=== PATIENT | male | born 1965 | race Caucasian/White ===

== ENCOUNTER → 2018-03-29 | Outpatient (CLI) | payer OTHER ==
--- NOTE | 2018-03-29 09:48 | XR ---
EXAMINATION TYPE: XR lumbosacral spine min 4V DATE OF EXAM: 03/29/2018 CLINICAL HISTORY: Chronic low back pain TECHNIQUE: Frontal, lateral, and oblique images of the lumbar spine are obtained. COMPARISON: None FINDINGS: There are 5 lumbar type vertebral bodies identified. The lumbar spine shows satisfactory alignment without evidence of acute fracture or dislocation. Vertebral body heights and disk space he ights are within normal limits. Mild multilevel anterior and lateral spurring is seen. The oblique i mages appear within normal limits. The overlying soft tissue appears unremarkable. IMPRESSION: Mild multilevel spurring is present.
== END ==
LOC: RADXRMAIN 09:05
PROVIDERS: ATTEND Family Medicine
DX: M46.06 Spinal enthesopathy, lumbar region (principal)
CPT/HCPCS: 72110

== ENCOUNTER 2019-09-08 17:55 | Observation (INO) | payer OTHER ==
[2019-09-08] MEDS ORDERED: SODIUM CHLORIDE 0.9% 1,000 ML IV STA (18:59)
[2019-09-08] MEDS ORDERED: ASPIRIN 81 MG PO STA (18:59)
[2019-09-08] MEDS ORDERED: NITROGLYCERIN SL TABS 0.4 MG TAB SUBLINGUAL STA ×3 (18:59)
--- NOTE | 2019-09-08 19:03 | ED ---
General Adult HPI - General Chief complaint: Chest Pain Stated complaint: GISSEL,Chest pain Time Seen by Provider: 09/08/19 18:04 Source: patient, RN notes reviewed Mode of arrival: ambulatory Limitations: no limitations - History of Present Illness Initial comments: Patient is a pleasant 54-year-old male presenting to the emergency department with chest discomfort. Symptoms have been waxing and waning over the past 2 days. Patient has sharp chest discomfort. There is some associated dyspnea and nausea and sweating. Patient does have history of similar symptoms previously associated with cardiac disease. Discomfort is currently 7/10. No radiation. Patient has diffuse chronic bone pain. - Related Data Home Medications Medication Instructions Recorded Confirmed No Known Home Medications 09/08/19 09/08/19 Allergies Allergy/AdvReac Type Severity Reaction Status Date / Time No Known Allergies Allergy Verified 09/08/19 18:38 Review of Systems ROS Statement: Those systems with pertinent positive or pertinent negative responses have been documented in the HPI. ROS Other: All systems not noted in ROS Statement are negative. Constitutional: Denies: fever Eyes: Denies: eye pain ENT: Denies: ear pain Respiratory: Reports: dyspnea Cardiovascular: Reports: chest pain Endocrine: Denies: fatigue Gastrointestinal: Reports: nausea. Denies: abdominal pain Genitourinary: Denies: dysuria Musculoskeletal: Reports: as per HPI Skin: Denies: rash Neurological: Denies: weakness Past Medical History Past Medical History: COPD History of Any Multi-Drug Resistant Organisms: None Reported Past Surgical History: No Surgical Hx Reported Past Psychological History: No Psychological Hx Reported Smoking Status: Current every day smoker Past Alcohol Use History: None Reported Past Drug Use History: Marijuana General Exam Limitations: no limitations General appearance: alert, in no apparent distress Head exam: Present: normocephalic Eye exam: Present: normal appearance, PERRL ENT exam: Present: normal oropharynx Neck exam: Present: normal inspection Respiratory exam: Present: normal lung sounds bilaterally. Absent: chest wall tenderness Cardiovascular Exam: Present: regular rate, normal rhythm Expanded Peripheral pulses: 2+: Radial (R), Radial (L), Posterior Tibialis (R), Posterior Tibialis (L), Dorsalis Pedis (R), Dorsalis Pedis (L) GI/Abdominal exam: Present: soft. Absent: tenderness Extremities exam: Present: normal inspection. Absent: pedal edema, calf tenderness Neurological exam: Present: alert Psychiatric exam: Present: normal affect, normal mood Skin exam: Present: normal color Course Vital Signs 09/08/19 09/08/19 09/08/19 17:59 19:13 19:17 Temperature 97.9 F Pulse Rate 85 64 59 L Respiratory 20 18 18 Rate Blood Pressure 129/85 117/73 118/76 O2 Sat by Pulse 99 95 96 Oximetry EKG Findings - EKG Comments: EKG Findings:: Normal sinus rhythm 67. SD 132. QRS 88. QT 374. QTC 395. Left axis. Septal Q waves. No acute ST change. Medical Decision Making - Medical Decision Making Patient reevaluated and resting comfortably in bed. Symptoms have improved with nitroglycerin. Patient updated on results and plan. Case was discussed with practitioner Elsy, covering with Dr. George, who will admit for hospital call. - Lab Data Result diagrams: 09/08/19 18:39 09/08/19 18:39 Lab Results 09/08/19 09/08/19 09/08/19 Range/Units 18:39 18:39 18:39 WBC 7.0 (3.8-10.6) k/uL RBC 4.80 (4.30-5.90) m/uL Hgb 15.9 (13.0-17.5) gm/dL Hct 47.1 (39.0-53.0) % MCV 98.2 (80.0-100.0) fL MCH 33.3 (25.0-35.0) pg MCHC 33.9 (31.0-37.0) g/dL RDW 12.0 (11.5-15.5) % Plt Count 203 (150-450) k/uL Neutrophils % 59 % Lymphocytes % 28 % Monocytes % 6 % Eosinophils % 3 % Basophils % 1 % Neutrophils # 4.1 (1.3-7.7) k/uL Lymphocytes # 2.0 (1.0-4.8) k/uL Monocytes # 0.4 (0-1.0) k/uL Eosinophils # 0.2 (0-0.7) k/uL Basophils # 0.1 (0-0.2) k/uL PT 10.5 (9.0-12.0) sec INR 1.0 (<1.2) APTT 24.6 (22.0-30.0) sec D-Dimer 0.19 (<0.60) mg/L FEU Sodium 138 (137-145) mmol/L Potassium 4.3 (3.5-5.1) mmol/L Chloride 107 (98-107) mmol/L Carbon Dioxide 24 (22-30) mmol/L Anion Gap 7 mmol/L BUN 17 (9-20) mg/dL Creatinine 0.89 (0.66-1.25) mg/dL Est GFR (CKD-EPI)AfAm >90 (>60 ml/min/1.73 sqM) Est GFR (CKD-EPI)NonAf >90 (>60 ml/min/1.73 sqM) Glucose 133 H (74-99) mg/dL Calcium 9.0 (8.4-10.2) mg/dL Magnesium 1.8 (1.6-2.3) mg/dL Total Bilirubin 0.6 (0.2-1.3) mg/dL AST 36 (17-59) U/L ALT 26 (21-72) U/L Alkaline Phosphatase 52 (38-126) U/L Troponin I (0.000-0.034) ng/mL NT-Pro-B Natriuret Pep pg/mL Total Protein 6.6 (6.3-8.2) g/dL Albumin 4.0 (3.5-5.0) g/dL Amylase 53 (30-110) U/L Lipase 34 (23-300) U/L 09/08/19 09/08/19 Range/Units 18:39 18:39 WBC (3.8-10.6) k/uL RBC (4.30-5.90) m/uL Hgb (13.0-17.5) gm/dL Hct (39.0-53.0) % MCV (80.0-100.0) fL MCH (25.0-35.0) pg MCHC (31.0-37.0) g/dL RDW (11.5-15.5) % Plt Count (150-450) k/uL Neutrophils % % Lymphocytes % % Monocytes % % Eosinophils % % Basophils % % Neutrophils # (1.3-7.7) k/uL Lymphocytes # (1.0-4.8) k/uL Monocytes # (0-1.0) k/uL Eosinophils # (0-0.7) k/uL Basophils # (0-0.2) k/uL PT (9.0-12.0) sec INR (<1.2) APTT (22.0-30.0) sec D-Dimer (<0.60) mg/L FEU Sodium (137-145) mmol/L Potassium (3.5-5.1) mmol/L Chloride (98-107) mmol/L Carbon Dioxide (22-30) mmol/L Anion Gap mmol/L BUN (9-20) mg/dL Creatinine (0.66-1.25) mg/dL Est GFR (CKD-EPI)AfAm (>60 ml/min/1.73 sqM) Est GFR (CKD-EPI)NonAf (>60 ml/min/1.73 sqM) Glucose (74-99) mg/dL Calcium (8.4-10.2) mg/dL Magnesium (1.6-2.3) mg/dL Total Bilirubin (0.2-1.3) mg/dL AST (17-59) U/L ALT (21-72) U/L Alkaline Phosphatase (38-126) U/L Troponin I <0.012 (0.000-0.034) ng/mL NT-Pro-B Natriuret Pep 56 pg/mL Total Protein (6.3-8.2) g/dL Albumin (3.5-5.0) g/dL Amylase (30-110) U/L Lipase (23-300) U/L - Radiology Data Radiology results: image reviewed (Chest x-ray shows no acute process) Critical Care Time Critical Care Time: Yes Total Critical Care Time: 32 Disposition Clinical Impression: Unstable angina pectoris Disposition: ADMITTED IP TO THIS HOSP Is patient prescribed a controlled substance at d/c from ED?: No Referrals: None,Stated [Primary Care Provider] - 1-2 days Decision Time: 20:28
[2019-09-08 19:17] LABS: Basophils # (A) 0.1 k/uL (0-0.2); Basophils % (A) 1 %; Eosinophils # (A) 0.2 k/uL (0-0.7); Eosinophils % (A) 3 %; HCT 47.1 % (39.0-53.0); HGB 15.9 gm/dL (13.0-17.5); Lymphocytes % (A) 28 %; MCH 33.3 pg (25.0-35.0); MCHC 33.9 g/dL (31.0-37.0); MCV 98.2 fL (80.0-100.0); Mean Platelet Volume 7.2; Monocytes # (A) 0.4 k/uL (0-1.0); Monocytes % (A) 6 %; Neutrophils # (A) 4.1 k/uL (1.3-7.7); Neutrophils % (A) 59 %; Platelet Count 203 k/uL (150-450)
[2019-09-08 19:25] LABS: ALT 26 U/L (21-72); AST 36 U/L (17-59); African American GFR (CKD) >90 (>60 ml/min/1.73 sqM); Alkaline Phosphatase 52 U/L (38-126); Amylase 53 U/L (30-110); Anion Gap 7 mmol/L; Blood Urea Nitrogen 17 mg/dL (9-20); Carbon Dioxide 24 mmol/L (22-30); Chloride 107 mmol/L (98-107); Glucose 133 mg/dL (74-99); Magnesium 1.8 mg/dL (1.6-2.3); Sodium 138 mmol/L (137-145); Total Bilirubin 0.6 mg/dL (0.2-1.3); Total Protein 6.6 g/dL (6.3-8.2)
[2019-09-08 19:33] LABS: Potassium 4.3 mmol/L (3.5-5.1)
[2019-09-08 19:35] LABS: D-Dimer 0.19 mg/L FEU (<0.60); Partial Thromboplastin Time 24.6 sec (22.0-30.0); Prothrombin Time 10.5 sec (9.0-12.0)
--- NOTE | 2019-09-08 19:55 | XR ---
EXAMINATION TYPE: XR chest 2V DATE OF EXAM: 09/08/2019 COMPARISON: NONE HISTORY: Chest pain TECHNIQUE: Frontal and lateral views of the chest are obtained. FINDINGS: Heart and mediastinum are normal. Lungs are clear. Diaphragm is normal. Bony thorax appear s normal. IMPRESSION: No active cardiopulmonary disease..
[2019-09-08] MEDS ORDERED: HEPARIN SODIUM,PORCINE 5,000 UNIT/ML 1 ML VIAL IV PRN (20:29)
[2019-09-08] MEDS ORDERED: HEPARIN SODIUM,PORCINE 5,000 UNIT/ML 1 ML VIAL IV ONE (20:29)
[2019-09-08] MEDS ORDERED: HEPARIN SOD,PORK IN 0.45% NACL 25,000 UNIT in 0.45% NACL 1 250ML.BAG IV SCH (20:30)
[2019-09-08] MEDS: NITROGLYCERIN-D5W PMX 50 MG in DEXTROSE/WATER 1 250ML.BAG IV ONE (20:34)
[2019-09-08 22:28] VITALS: BMI 21.1
[2019-09-09 02:53] LABS: Mean Platelet Volume 6.9; Platelet Count 191 k/uL (150-450)
[2019-09-09 03:05] LABS: Cholesterol 138 mg/dL (<200); HDL Cholesterol 43 mg/dL (40-60); LDL Cholesterol,Calculated 80 mg/dL (0-99); Triglycerides 77 mg/dL (<150)
[2019-09-09] MEDS: NITROGLYCERIN-D5W PMX 50 MG in DEXTROSE/WATER 1 250ML.BAG IV ONE (05:53)
[2019-09-09] MEDS: ASPIRIN 325 MG TAB PO SCH (09:05)
[2019-09-09] MEDS: ACETAMINOPHEN TAB 500 MG TAB PO PRN ×2 (09:05→17:39)
--- NOTE | 2019-09-09 09:26 | P.CRDCN ---
History of Present Illness Consult date: 09/09/19 Chief complaint: Chest pain History of present illness: This is a pleasant 54-year-old gentleman with a past medical history significant for smoking and significant family history of coronary artery disease presented to the hospital complaining of chest discomfort. The patient presented to the emergency room yesterday experiencing discomfort in the chest. The discomfort started about 3 days ago. The patient stated that it was on the left side of the chest, as a sharp kind of discomfort, and it was intermittent. For the last 12 hours the pain was continuous and it was resolved with nitroglycerin. The discomfort extends and radiated to the left arm and associated also with numbness in the left hand. No symptoms of sweating, dizziness, nausea or vomiting. Currently the patient is on nitro drip which is relieving his pain free in spite of the nitro drip the patient is having mild ongoing chest discomfort. The EKG showed sinus rhythm without any significant ST or T-wave abnormalities. The cardiac enzymes were checked and came in to be unremarkable. Also he is on heparin drip. Giving the ongoing chest discomfort, and his multiple risk factors including smoking and family history, I did recommend proceeding with coronary angiogram. Also I will obtain an echocardiogram was Doppler. Past Medical History Past Medical History: COPD History of Any Multi-Drug Resistant Organisms: None Reported Past Surgical History: No Surgical Hx Reported Past Psychological History: No Psychological Hx Reported Smoking Status: Current every day smoker Past Alcohol Use History: None Reported Past Drug Use History: Marijuana - Past Family History Father Family Medical History: Diabetes Mellitus, Hypertension, Myocardial Infarction ([place]) Additional Family Medical History / Comment(s): in 1979 during operation to amputate leg because of gangrene. Mother Family Medical History: Liver Disease Additional Family Medical History / Comment(s): Alcoholism. in 1979 from cirrhosis of the liver. Medications and Allergies Home Medications Medication Instructions Recorded Confirmed Type No Known Home Medications 09/08/19 09/08/19 History Allergies Allergy/AdvReac Type Severity Reaction Status Date / Time bee venom protein (honey bee) Allergy Anaphylaxis Verified 09/08/19 22:46 Penicillins Allergy Rash/Hives Verified 09/08/19 22:45 Physical Exam Vitals: Vital Signs Temp Pulse Pulse Resp BP BP Pulse Ox 09/09/19 08:40 93 L 09/09/19 06:20 55 L 119/72 09/09/19 05:50 72 116/69 09/09/19 04:00 97.1 F L 69 16 125/71 96 09/09/19 00:00 97.2 F L 63 18 116/69 98 09/08/19 22:00 97.2 F L 57 L 16 108/60 98 09/08/19 19:17 59 L 18 118/76 96 09/08/19 19:13 64 18 117/73 95 09/08/19 17:59 97.9 F 85 20 129/85 99 Intake and Output 09/08/19 09/09/19 09/09/19 22:59 06:59 14:59 Other: Voiding Method Toilet # Voids 1 2 Weight 61.235 kg 55.9 kg - Constitutional General appearance: no acute distress - Respiratory Respiratory: bilateral: CTA - Cardiovascular Rhythm: regular Heart sounds: normal: S1, S2 Results 09/09/19 02:27 09/08/19 18:39 Cardiac Enzymes 09/08/19 09/08/19 09/09/19 Range/Units 18:39 18:39 00:22 AST 36 (17-59) U/L Troponin I <0.012 <0.012 (0.000-0.034) ng/mL 09/09/19 Range/Units 06:21 AST (17-59) U/L Troponin I <0.012 (0.000-0.034) ng/mL Coagulation 09/08/19 09/09/19 Range/Units 18:39 02:27 PT 10.5 (9.0-12.0) sec APTT 24.6 55.0 H (22.0-30.0) sec Lipids 09/09/19 Range/Units 02:27 Triglycerides 77 (<150) mg/dL Cholesterol 138 (<200) mg/dL HDL Cholesterol 43 (40-60) mg/dL CBC 09/08/19 09/09/19 Range/Units 18:39 02:27 WBC 7.0 (3.8-10.6) k/uL RBC 4.80 (4.30-5.90) m/uL Hgb 15.9 (13.0-17.5) gm/dL Hct 47.1 (39.0-53.0) % Plt Count 203 191 (150-450) k/uL Comprehensive Metabolic Panel 09/08/19 Range/Units 18:39 Sodium 138 (137-145) mmol/L Potassium 4.3 (3.5-5.1) mmol/L Chloride 107 (98-107) mmol/L Carbon Dioxide 24 (22-30) mmol/L BUN 17 (9-20) mg/dL Creatinine 0.89 (0.66-1.25) mg/dL Glucose 133 H (74-99) mg/dL Calcium 9.0 (8.4-10.2) mg/dL AST 36 (17-59) U/L ALT 26 (21-72) U/L Alkaline Phosphatase 52 (38-126) U/L Total Protein 6.6 (6.3-8.2) g/dL Albumin 4.0 (3.5-5.0) g/dL Current Medications Generic Name Dose Route Start Last Admin Trade Name Freq PRN Reason Stop Dose Admin Acetaminophen 1,000 mg 09/09/19 08:37 09/09/19 09:05 Tylenol Tab PO 1,000 mg Q6HR PRN Administration Fever and/ or Pain Aspirin 325 mg 09/09/19 09:00 09/09/19 09:05 Aspirin PO 325 mg DAILY LYNN Administration Heparin Sodium (Porcine) 0 unit 09/08/19 20:29 Heparin IV Q6HR PRN Low PTT Protocol Nitroglycerin/Dextrose 50 mg/ 250 mls @ 3 mls/hr 09/08/19 19:59 09/09/19 05:53 IV Solution IV 09/09/19 19:58 10 mcg/min .Q24H ONE 3 mls/hr Administration 10 MCG/MIN Heparin Sodium/Sodium Chloride 250 mls @ 7.348 mls/hr 09/08/19 20:30 09/08/19 20:42 25,000 unit/ Sodium Chloride IV 12 units/kg/hr .Q24H LYNN 7.348 mls/hr Administration Protocol 12 UNITS/KG/HR Intake and Output 09/08/19 09/09/19 09/09/19 22:59 06:59 14:59 Other: Voiding Method Toilet # Voids 1 2 Weight 61.235 kg 55.9 kg 09/09/19 02:27 09/08/19 18:39 Assessment and Plan Assessment: Assessment #1 ongoing chest discomfort #2 significant history of smoking #3 significant family history of CAD Plan Acute coronary event was ruled out I did recommend proceeding with coronary angiogram Obtain an echocardiogram was Doppler Thank you for allowing us participate in his care
[2019-09-09] MEDS ORDERED: LIDOCAINE 1% INJ 10MG/ML (20 ML MDV) ONE (11:10)
[2019-09-09] MEDS ORDERED: VERAPAMIL 2.5 MG/ML 2 ML AMP ONE (11:11)
[2019-09-09] MEDS ORDERED: HEPARIN SODIUM 1,000 UN/ML (10ML VL) ONE (11:11)
[2019-09-09] MEDS ORDERED: IV FLUID CONTINUATION 700 ML IV ONE (11:29)
[2019-09-09] MEDS ORDERED: MIDAZOLAM 2 MG/2 ML VIAL IV ONE (11:29)
[2019-09-09] MEDS ORDERED: LIDOCAINE 1% INJ 10MG/ML (20 ML MDV) SQ ONE (11:34)
[2019-09-09] MEDS: VERAPAMIL SYRINGE (5 MG/10 ML) INTRAARTER ONE ×2 (11:35→11:44)
[2019-09-09] MEDS ORDERED: IOPAMIDOL-370 125ML BTL INJ ONE (11:47)
--- NOTE | 2019-09-09 11:50 | P.PCN ---
Date of Procedure: 09/09/19 Operative Findings: CARDIAC CATHETERIZATION PERFORMING PHYSICIAN: Jeramy Arredondo MD, RPVI PROCEDURE PERFORMED: 1. Selective right and left coronary angiogram 2. Left heart catheterization INDICATION: This is a pleasant 54-year-old gentleman with history of smoking and significant family history of coronary artery disease presented to the hospital with a chest discomfort. He continues to have ongoing chest discomfort which was relieved partially using IV nitroglycerin. Because of the continuous chest discomfort, I heart catheterization was advised COMPLICATION: None APPROACH: Right radial artery LEVEL OF SEDATION: Moderate with a sedation and of 12 minutes PROCEDURE DESCRIPTION: After obtaining an informed consent, the patient was brought to cardiac laboratory tech. Local anesthesia was performed using lidocaine subcutaneously. The right radial artery was cannulated using Seldinger technique, the guidewire passed easily, following that we advanced a 5-Haitian sheath dilator assembly, the wire and dilator were removed and sheath was flushed. Following that, 2 mg of verapamil along with 6000 unit heparin were given. Selective right and left coronary angiogram using a 6-Haitian JR3.5 and JL 3.0 catheters. Following that we did left heart catheterization using 6-Haitian pigtail cath eter. The procedure was completed there was no complication. SELECTIVE CORONARY ANGIOGRAM: The right coronary artery: Is a large caliber vessel and a dominant vessel. Its angiographically normal. Left main: It is angiographically normal. Bifurcates into LCx and LAD. The left circumflex: Is a large caliber vessel and a codominant vessel. Its angiographically normal. It gives rises into a large OM which seems to be normal. Distally bifurcates into PDA and PLV branches The left anterior descending artery: The LAD is angiographically normal. In the proximal portion gives rise into a l arge diagonal branch which seems to be normal. HEMODYNAMICS: The LVEDP was about 10 mmHg without significant gradient across aortic valve CONCLUSION: Normal coronary angiogram Normal LVEDP POSTPROCEDURE MANAGEMENT: Medical treatment Smoking cessation
--- NOTE | 2019-09-09 14:33 | ECHOF ---
Referral Reason: MEASUREMENTS -------- HEIGHT: 170.2 cm WEIGHT: 55.7 kg BP: 119/72 RVIDd: 3.1 cm (< 3.3) IVSd: 0.9 cm (0.6 - 1.1) LVIDd: 3.9 cm (3.9 - 5.3) LVPWd: 1.0 cm (0.6 - 1.1) IVSs: 1.5 cm LVIDs: 2.4 cm LVPWs: 1.5 cm LAESV Index (A-L): 13.90 ml/m Ao Diam: 2.9 cm (2.0 - 3.7) AV Cusp: 1.7 cm (1.5 - 2.6) LA Diam: 3.2 cm (2.7 - 3.8) MV EXCURSION: 13.666 mm (> 18.000) MV EF SLOPE: 108 mm/s (70 - 150) EPSS: 1.0 cm MV E Roberth: 0.98 m/s MV DecT: 202 ms MV A Roberth: 0.62 m/s MV E/A Ratio: 1.59 RAP: 5.00 mmHg RVSP: 25.57 mmHg TAPSE: 19.52 mm FINDINGS -------- Sinus rhythm. This was a technically adequate study. The left ventricular size is normal. Left ventricular wall thickness is normal. Overall left vent ricular systolic function is normal with, an EF between 55 - 60 %. The diastolic filling pattern is normal for the age of the patient 11.78. The right ventricle is normal in size. Normal LA size by volume 22+/-6 ml/m2. The right atrial size is normal. Interatrial and interventricular septum intact. The aortic valve was not well visualized. There is no evidence of aortic regurgitation. There is no evidence of aortic stenosis. No mitral regurgitation. [id number] tricuspid regurgitation present. There is no evidence of pulmonary hypertension. The right ventricular systolic pressure, as measured by Doppler, is 25.57mmHg. The pulmonic valve was not well visualized. There is no pulmonic regurgitation present. The aortic root size is normal. IVC Not well visulized. There is no pericardial effusion. CONCLUSIONS -------- 1. Sinus rhythm. 2. This was a technically adequate study. 3. The left ventricular size is normal. 4. Left ventricular wall thickness is normal. 5. Overall left ventricular systolic function is normal with, an EF between 55 - 60 %. 6. The diastolic filling pattern is normal for the age of the patient 11.78 7. The right ventricle is normal in size. 8. Normal LA size by volume 22+/-6 ml/m2. 9. The right atrial size is normal. 10. Interatrial and interventricular septum intact. 11. The aortic valve was not well visualized. 12. There is no evidence of aortic regurgitation. 13. There is no evidence of aortic stenosis. 14. No mitral regurgitation. 15. [id number] tricuspid regurgitation present. 16. There is no evidence of pulmonary hypertension. 17. The right ventricular systolic pressure, as measured by Doppler, is 25.57mmHg. 18. The pulmonic valve was not well visualized. 19. There is no pulmonic regurgitation present. 20. The aortic root size is normal. 21. IVC Not well visulized. 22. There is no pericardial effusion. GRINDER OPERATOR [employer]ATIC: Carrie Escamilla RDCS
[2019-09-09] MEDS: PANTOPRAZOLE 40 MG TABLET PO SCH (17:39)
--- NOTE | 2019-09-10 00:10 | P.HPIM ---
History of Present Illness H&P Date: 09/09/19 Chief Complaint: Chest pain Patient is a 54-year-old male with a known history of COPD, marijuana use and currently ongoing nicotine addiction came to ER with the complaints of chest discomfort. Patient has been having chest pain, felt like somebody is sitting on the chest. 7- out of 10 in severity. Chest pain is mainly left lower pectoralis border on and off for the past 2 days. Chest pain associated with some shortness of breath nausea and sweating. Denied any radiation of the pain. Patient says that chest pain resolved with nitroglycerin. Patient also felt so me numbness in the left hand. No headache or dizziness or lightheadedness. No fever no chills. No cough or sputum production. No recent illnesses. No nausea or nausea vomiting or abdominal pain or diarrhea. Patient does take Motrin/ibuprofen almost daily basis for his pain. EKG showed sinus rhythm with no ST-T wave changes. Chest x-ray showed no acute cardiopulmonary process. D-dimer not elevated. Troponin 2 negative. Review of Systems Constitutional: Patient denies any fever or chills . No generalized weakness or weight loss. Abdomen: Patient denied nausea vomiting and diarrhea and abdominal pain. Cardiovascular: Patient does have chest pain with mild short of breath no palpitations. Respiratory: patient denied any cough is from production. No shortness of breath Neurologic: Patient denied any numbness or tingling headache. Musculoskeletal: Patient denies any complaints of joint swelling or deformity. Skin: Negative Psychiatric: Negative Endocrine: No heat or cold intolerance. No recent weight gain. Genitourinary: No dysuria or hematuria. All other 14 point ROS negative except the above Past Medical History Past Medical History: COPD History of Any Multi-Drug Resistant Organisms: None Reported Past Surgical History: No Surgical Hx Reported Past Psychological History: No Psychological Hx Reported Smoking Status: Current every day smoker Past Alcohol Use History: None Reported Past Drug Use History: Marijuana - Past Family History Father Family Medical History: Diabetes Mellitus, Hypertension, Myocardial Infarction ([place]) Additional Family Medical History / Comment(s): in 1979 during operation to amputate leg because of gangrene. Mother Family Medical History: Liver Disease Additional Family Medical History / Comment(s): Alcoholism. in 1979 from cirrhosis of the liver. Medications and Allergies Home Medications Medication Instructions Recorded Confirmed Type No Known Home Medications 09/08/19 09/08/19 History Allergies Allergy/AdvReac Type Severity Reaction Status Date / Time bee venom protein (honey bee) Allergy Anaphylaxis Verified 09/08/19 22:46 Penicillins Allergy Rash/Hives Verified 09/08/19 22:45 Physical Exam Vitals: Vital Signs Temp Pulse Pulse Resp BP BP Pulse Ox 09/09/19 08:40 93 L 09/09/19 08:10 97.0 F L 65 18 110/64 95 09/09/19 06:20 55 L 119/72 09/09/19 05:50 72 116/69 09/09/19 04:00 97.1 F L 69 16 125/71 96 09/09/19 00:00 97.2 F L 63 18 116/69 98 09/08/19 22:00 97.2 F L 57 L 16 108/60 98 09/08/19 19:17 59 L 18 118/76 96 09/08/19 19:13 64 18 117/73 95 09/08/19 17:59 97.9 F 85 20 129/85 99 Intake and Output 09/08/19 09/09/19 09/09/19 22:59 06:59 14:59 Intake Total 100 Balance 100 Intake: IV 100 Other: Voiding Method Toilet # Voids 1 2 2 Weight 61.235 kg 55.9 kg PHYSICAL EXAMINATION: Patient is lying in the bed comfortably, no acute distress, awake alert and oriented.. HEENT: Normocephalic. Neck is supple. Pupils reactive. Nostrils clear. Oral cavity is moist. Ears reveal no drainage. Neck reveals no JVD, carotid bruits, or thyromegaly. CHEST EXAMINATION: Trachea is central. Symmetrical expansion. Lung diggs clear to auscultation and percussion. CARDIAC: Normal S1, S2 with no gallops. No murmurs ABDOMEN: Soft. Bowel sounds normal. No organomegaly. No abdominal bruits. Extremities: reveal no edema. No clubbing or cyanosis Neurologically awake, alert, oriented x3 with well-coordinated movements. No focal deficits noted Skin: No rash or skin lesions. Psychiatric: Coperative. Nonsuicidal Musculoskeletal: No joint swelling or deformity. Normal range of motion. Results CBC & Chem 7: 09/09/19 02:27 09/08/19 18:39 Labs: Abnormal Lab Results - Last 24 Hours (Table) 09/08/19 09/09/19 Range/Units 18:39 02:27 APTT 55.0 H (22.0-30.0) sec Glucose 133 H (74-99) mg/dL Thrombosis Risk Factor Assmnt - DVT/VTE Prophylaxis DVT/VTE Prophylaxis: Pharmacologic Prophylaxis ordered - Choose All That Apply Each Factor Represents 1 point: Age 41-60 years, Medical pt on bed rest Thrombosis Risk Factor Assessment Total Risk Factor Score: 2 Thrombosis Risk Factor Assessment Level: Low Risk Assessment and Plan Assessment: Chest pain. Possible unstable angina. Status post cardiac catheterization with no significant coronary artery disease. Possible acute gastritis versus gastric ulcer due to history of NSAID intake. Ongoing nicotine addiction Chronic pain History of marijuana use DVT prophylaxis with heparin subcu Plan: Patient be continued on telemetry monitoring. Serial EKG/troponin 3 negative. Patient is status post cardiac catheter patient. Continue with PPI twice a day. Cardiology is on board. Further recommendations based on the clinical course. Time with Patient: Greater than 30
[2019-09-10 04:01] VITALS: PULSE 61
[2019-09-10 06:18] LABS: Basophils # (A) 0.1 k/uL (0-0.2); Basophils % (A) 1 %; Eosinophils # (A) 0.3 k/uL (0-0.7); Eosinophils % (A) 4 %; HCT 47.3 % (39.0-53.0); Lymphocytes % (A) 31 %; MCH 31.8 pg (25.0-35.0); MCHC 31.7 g/dL (31.0-37.0); MCV 100.5 fL (80.0-100.0); Mean Platelet Volume 8.1; Monocytes # (A) 0.4 k/uL (0-1.0); Monocytes % (A) 7 %; Neutrophils # (A) 3.5 k/uL (1.3-7.7); Neutrophils % (A) 54 %; Platelet Count 161 k/uL (150-450); RBC 4.71 m/uL (4.30-5.90); RDW 12.3 % (11.5-15.5); WBC 6.5 k/uL (3.8-10.6)
[2019-09-10 06:28] LABS: African American GFR (CKD) >90 (>60 ml/min/1.73 sqM); Anion Gap 6 mmol/L; Blood Urea Nitrogen 11 mg/dL (9-20); Calcium 8.5 mg/dL (8.4-10.2); Carbon Dioxide 24 mmol/L (22-30); Chloride 110 mmol/L (98-107); Glucose 97 mg/dL (74-99); Potassium 3.9 mmol/L (3.5-5.1); Sodium 140 mmol/L (137-145)
[2019-09-10] MEDS: PANTOPRAZOLE 40 MG TABLET PO SCH (06:56)
[2019-09-10] MEDS ORDERED: HEPARIN SODIUM,PORCINE 5,000 UNIT/ML 1 ML VIAL SQ SCH (08:00)
[2019-09-10] MEDS: ASPIRIN 325 MG TAB PO SCH (08:31)
[2019-09-10 10:51] VITALS: RESP 18
--- NOTE | 2019-09-10 11:23 | P.PN ---
Subjective Progress Note Date: 09/10/19 Principal diagnosis: Chest pain This is a pleasant 54-year-old gentleman with a past medical history significant for smoking and significant family history of coronary artery disease who presented to the hospital with a chest discomfort and ruled out for acute coronary event. Because of the ongoing chest discomfort which was resolved by nitroglycerin IV, we decided to pursue with a heart catheterization. The heart catheterization revealed normal coronaries. On follow-up with the patient today, 09/10/2019, he is chest pain-free. Beside that he denies any shortness of breath, dizziness, heart racing, or syncope. From a cardiac vascular standpoint of view, the patient can be discharged home. Smoking cessation was discussed with him. Objective - Vital Signs Vital signs: Vital Signs Temp 98.0 F 09/10/19 08:20 Pulse 61 09/10/19 08:20 Resp 18 09/10/19 08:20 BP 137/79 09/10/19 08:20 Pulse Ox 98 09/10/19 08:20 Intake & Output 09/09/19 09/10/19 09/10/19 18:59 06:59 18:59 Intake Total 1122 218 600 Output Total 950 500 Balance 1122 -732 100 Weight 55.1 kg Intake: IV 100 Intake, IV Titration 800 Amount Sodium Chloride 0.9% 1, 800 000 ml @ 100 mls/hr IV . Q10H STA Rx#:[id number] Oral 222 218 600 Output: Urine 950 500 Other: Voiding Method Toilet # Voids 2 1 1 - Constitutional General appearance: Present: no acute distress - Respiratory Respiratory: bilateral: CTA - Cardiovascular Rhythm: regular Heart sounds: normal: S1, S2 - Labs CBC & Chem 7: 09/10/19 06:07 09/10/19 06:07 Labs: Abnormal Lab Results - Last 24 Hours (Table) 09/10/19 09/10/19 Range/Units 06:07 06:07 MCV 100.5 H (80.0-100.0) fL Chloride 110 H (98-107) mmol/L Assessment and Plan Assessment: Assessment #1 chest pain which has resolved #2 history of smoking Plan #1 the coronary angiogram revealed normal coronaries #2 from the cardiovascular standpoint of view, the patient can be discharged home #3 the echo was reviewed and reveals normal LV function
[2019-09-10 13:14] VITALS: BP 129/77; TEMP 97.6
--- NOTE | 2019-09-19 20:45 | P.DS ---
Providers Date of admission: 09/08/19 20:29 Expected date of discharge: 09/10/19 Attending physician: Hoda George Consults: 09/08/19 20:29 Consult Physician Urgent Consulting Provider: Dayanna Chan Consult Reason/Comments: Cardiac evaluation and care Do you want consulting provider notified?: Yes Primary care physician: Stated None Hospital Course: Discharge diagnosis Chest pain. Possible unstable angina. Status post cardiac catheterization with no significant coronary artery disease. Possible acute gastritis versus gastric ulcer due to history of NSAID intake. Ongoing nicotine addiction Chronic pain History of marijuana use DVT prophylaxis with heparin subcu Hospital course Patient is a 54-year-old male with a known history of COPD, marijuana use and currently ongoing nicotine addiction came to ER with the complaints of chest discomfort. Patient has been having chest pain, felt like somebody is sitting on the chest. 7- out of 10 in severity. Chest pain is mainly left lower pectoralis border on and off for the past 2 days. Chest pain associated with some shortness of breath nausea and sweating. Denied any radiation of the pain. Patient says that chest pain resolved with nitroglycerin. Patient also felt some numbness in the left hand. No headache or dizziness or lightheadedness. No fever no chills. No cough or sputum production. No recent illnesses. No nausea or nausea vomiting or abdominal pain or diarrhea. Patient does take Motrin/ibuprofen almost daily basis for his pain. EKG showed sinus rhythm with no ST-T wave changes. Chest x-ray showed no acute cardiopulmonary process. D-dimer not elevated. Troponin 2 negative. Plan Patient be continued on telemetry monitoring. Serial EKG/troponin 3 negative. Patient is status post cardiac catheter patient. Continue with PPI twice a day. Patient is currently chest pain-free. Stable to be discharged home. Cleared by Cardiology. PHYSICAL EXAMINATION: Patient is lying in the bed comfortably, no acute distress, awake alert and oriented.. HEENT: Normocephalic. Neck is supple. Pupils reactive. Nostrils clear. Oral cavity is moist. Ears reveal no drainage. Neck reveals no JVD, carotid bruits, or thyromegaly. CHEST EXAMINATION: Trachea is central. Symmetrical expansion. Lung diggs clear to auscultation and percussion. CARDIAC: Normal S1, S2 with no gallops. No murmurs ABDOMEN: Soft. Bowel sounds normal. No organomegaly. No abdominal bruits. Extremities: reveal no edema. No clubbing or cyanosis Neurologically awake, alert, oriented x3 with well-coordinated movements. No focal deficits noted Skin: No rash or skin lesions. Psychiatric: Coperative. Nonsuicidal Musculoskeletal: No joint swelling or deformity. Normal range of motion. Vital Signs Temp 98.0 F 09/10/19 08:20 Pulse 61 09/10/19 08:20 Resp 18 09/10/19 08:20 BP 137/79 09/10/19 08:20 Pulse Ox 98 09/10/19 08:20 Patient Condition at Discharge: Stable Plan - Discharge Summary Discharge Rx Participant: Yes New Discharge Prescriptions: New Pantoprazole [Protonix] 40 mg PO AC-BRKFST #30 tablet. Albuterol Inhaler [Ventolin Hfa Inhaler] 1 - 2 puff INHALATION RT-Q6H PRN #1 inhaler PRN Reason: Shortness Of Breath Discharge Medication List Albuterol Inhaler [Ventolin Hfa Inhaler] 1 - 2 puff INHALATION RT-Q6H PRN #1 inhaler 09/10/19 [Rx] Pantoprazole [Protonix] 40 mg PO AC-BRKFST #30 tablet. 09/10/19 [Rx] Follow up Appointment(s)/Referral(s): Jeramy Arredondo MD [STAFF PHYSICIAN] - 2 Weeks (Please call tomorrow (Wednesday) for an appointment in 2 weeks.) None,Stated [Primary Care Provider] - 1-2 days (You need to find a primary doctor and follow up with them.) Patient Instructions/Handouts: How to Stop Smoking (GEN), Heart Catheterization (DC), After Radial Heart Catheterization (GEN) Discharge Disposition: HOME SELF-CARE
== END 2019-09-10 14:53 | disposition home or self-care (01) ==
LOC: EC 17:55 → 3SCARD 20:29
PROVIDERS: ADMIT Internal Medicine; ATTEND Internal Medicine
DX: R07.89 Other chest pain (principal); J44.9 Chronic obstructive pulmonary disease, unspecified; R11.0 Nausea; R61 Generalized hyperhidrosis; F17.200 Nicotine dependence, unspecified, uncomplicated; R20.0 Anesthesia of skin; Z88.0 Allergy status to penicillin; Z91.030 Bee allergy status; F12.90 Cannabis use, unspecified, uncomplicated; G89.29 Other chronic pain; Z82.49 Family history of ischemic heart disease and other diseases of the circulatory system; Z83.3 Family history of diabetes mellitus; Z83.79 Family history of other diseases of the digestive system; Z81.1 Family history of alcohol abuse and dependence
CPT/HCPCS: 99152; 96366 ×2; 96376; 96361; 96365; 99291; 36415; 93005; 93306; 93458; 85379; 83880; 80061; 80053; 80048; 82150; 83690; 83735; 84484 ×2; 85025 ×2; 85049; 85610; 85730 ×2; 71046; G0378 ×3; C1769; C1894; J2250; J1644 ×4; J2001; Q9967

== ENCOUNTER 2019-09-29 16:38 | Observation (INO) | payer OTHER ==
[2019-09-29] MEDS ORDERED: KETOROLAC 30 MG/ML 1 ML VIAL IVP STA (17:39)
[2019-09-29] MEDS ORDERED: SODIUM CHLORIDE 0.9% 1,000 ML IV STA ×2 (17:39)
[2019-09-29] MEDS ORDERED: PANTOPRAZOLE 40 MG/10 ML VIAL IVP STA (17:39)
[2019-09-29] MEDS ORDERED: ONDANSETRON 4 MG/2 ML VIAL IVP STA (17:39)
--- NOTE | 2019-09-29 17:45 | ED ---
Abdominal Pain HPI - General Chief Complaint: Abdominal Pain Stated Complaint: GISSEL NVD Time Seen by Provider: 09/29/19 16:59 Source: patient, RN notes reviewed, old records reviewed Mode of arrival: ambulatory Limitations: no limitations - History of Present Illness Initial Comments: This is a 54-year-old male the ER for evaluation presents today for evaluation regards to bowel pain patient really denies current abdominal pain elbow he has history of pancreatitis X Drinkard of smoking. No recent travel history no fevers. Does have persistent nausea vomiting and diarrhea body aches and pains does feel like he might have the flu. No significant travel history no sick contacts no family members with similar complaint MD Complaint: abdominal pain -: hour(s) Location: diffuse, epigastric, suprapubic Radiation: epigastric, suprapubic Migration to: no migration Severity: mild Severity scale (1-10): 3 Quality: aching Consistency: constant Improves With: nothing Worsens With: nothing Context: sick contacts Associated Symptoms: nausea, vomiting, diarrhea - Related Data Previous Rx's Medication Instructions Recorded Albuterol Inhaler [Ventolin Hfa 1 - 2 puff INHALATION RT-Q6H PRN 09/10/19 Inhaler] #1 inhaler Pantoprazole [Protonix] 40 mg PO AC-BRKFST #30 tablet. 09/10/19 Allergies Allergy/AdvReac Type Severity Reaction Status Date / Time bee venom protein (honey bee) Allergy Anaphylaxis Verified 09/29/19 16:55 Penicillins Allergy Rash/Hives Verified 09/29/19 16:55 Review of Systems ROS Statement: Those systems with pertinent positive or pertinent negative responses have been documented in the HPI. ROS Other: All systems not noted in ROS Statement are negative. Past Medical History Past Medical History: COPD History of Any Multi-Drug Resistant Organisms: None Reported Past Surgical History: No Surgical Hx Reported Past Psychological History: No Psychological Hx Reported Smoking Status: Current every day smoker Past Alcohol Use History: None Reported Past Drug Use History: Marijuana - Past Family History Father Family Medical History: Diabetes Mellitus, Hypertension, Myocardial Infarction ([place]) Additional Family Medical History / Comment(s): in 1979 during operation to amputate leg because of gangrene. Mother Family Medical History: Liver Disease Additional Family Medical History / Comment(s): Alcoholism. in 1979 from cirrhosis of the liver. General Exam Limitations: no limitations General appearance: alert, in no apparent distress Head exam: Present: atraumatic, normocephalic, normal inspection Eye exam: Present: normal appearance, PERRL, EOMI. Absent: scleral icterus, conjunctival injection, periorbital swelling ENT exam: Present: normal exam, mucous membranes moist Neck exam: Present: normal inspection. Absent: tenderness, meningismus, lymphadenopathy Respiratory exam: Present: normal lung sounds bilaterally. Absent: respiratory distress, wheezes, rales, rhonchi, stridor Cardiovascular Exam: Present: regular rate, normal rhythm, normal heart sounds. Absent: systolic murmur, diastolic murmur, rubs, gallop, clicks GI/Abdominal exam: Present: soft, normal bowel sounds. Absent: distended, tenderness, guarding, rebound, rigid Extremities exam: Present: normal inspection, full ROM, normal capillary refill. Absent: tenderness, pedal edema, joint swelling, calf tenderness Back exam: Present: normal inspection Neurological exam: Present: alert, oriented X3, CN II-XII intact Psychiatric exam: Present: normal affect, normal mood Skin exam: Present: warm, dry, intact, normal color. Absent: rash Course Vital Signs 09/29/19 16:52 Temperature 98.4 F Pulse Rate 77 Respiratory 18 Rate Blood Pressure 117/83 O2 Sat by Pulse 96 Oximetry - Reevaluation(s) Reevaluation #1: 09/29/19 17:45 Medical records reviewed Reevaluation #2: 09/29/19 19:01 Patient still with abdominal pain unable eat or drink - Consultations Consultation #1: Spoke with Dr. Zurita and who agrees for admission Medical Decision Making - Medical Decision Making 54 male the ER for evaluation patient resents today for evaluation of bowel pain with nausea vomiting positive pancreatitis with history of. Patient will be a dmitted for IV hydration and nothing by mouth status - Lab Data Result diagrams: 09/29/19 17:46 09/29/19 17:46 Lab Results 09/29/19 09/29/19 09/29/19 Range/Units 17:46 17:46 17:46 WBC 9.4 (3.8-10.6) k/uL RBC 4.96 (4.30-5.90) m/uL Hgb 16.1 (13.0-17.5) gm/dL Hct 47.9 (39.0-53.0) % MCV 96.6 (80.0-100.0) fL MCH 32.5 (25.0-35.0) pg MCHC 33.6 (31.0-37.0) g/dL RDW 12.0 (11.5-15.5) % Plt Count 200 (150-450) k/uL Neutrophils % 68 % Lymphocytes % 18 % Monocytes % 8 % Eosinophils % 1 % Basophils % 3 % Neutrophils # 6.4 (1.3-7.7) k/uL Lymphocytes # 1.7 (1.0-4.8) k/uL Monocytes # 0.7 (0-1.0) k/uL Eosinophils # 0.1 (0-0.7) k/uL Basophils # 0.2 (0-0.2) k/uL Sodium 139 (137-145) mmol/L Potassium 4.3 (3.5-5.1) mmol/L Chloride 105 (98-107) mmol/L Carbon Dioxide 27 (22-30) mmol/L Anion Gap 7 mmol/L BUN 19 (9-20) mg/dL Creatinine 0.98 (0.66-1.25) mg/dL Est GFR (CKD-EPI)AfAm >90 (>60 ml/min/1.73 sqM) Est GFR (CKD-EPI)NonAf 89 (>60 ml/min/1.73 sqM) Glucose 91 (74-99) mg/dL Calcium 9.4 (8.4-10.2) mg/dL Total Bilirubin 0.2 (0.2-1.3) mg/dL AST 26 (17-59) U/L ALT 24 (21-72) U/L Alkaline Phosphatase 59 (38-126) U/L Total Protein 7.0 (6.3-8.2) g/dL Albumin 4.1 (3.5-5.0) g/dL Amylase 182 H (30-110) U/L Lipase 1218 H (23-300) U/L Influenza Type A RNA Not Detected (Not Detectd) Influenza Type B (PCR) Not Detected (Not Detectd) Disposition Clinical Impression: Pancreatitis, Abdominal pain Disposition: ADMITTED IP TO THIS HOSP Condition: Good Is patient prescribed a controlled substance at d/c from ED?: No Referrals: None,Stated [Primary Care Provider] - 1-2 days
[2019-09-29 18:10] LABS: Basophils # (A) 0.2 k/uL (0-0.2); Basophils % (A) 3 %; Eosinophils # (A) 0.1 k/uL (0-0.7); Eosinophils % (A) 1 %; HCT 47.9 % (39.0-53.0); HGB 16.1 gm/dL (13.0-17.5); Lymphocytes # (A) 1.7 k/uL (1.0-4.8); Lymphocytes % (A) 18 %; MCH 32.5 pg (25.0-35.0); MCHC 33.6 g/dL (31.0-37.0); MCV 96.6 fL (80.0-100.0); Mean Platelet Volume 7.2; Monocytes # (A) 0.7 k/uL (0-1.0); Monocytes % (A) 8 %; Neutrophils # (A) 6.4 k/uL (1.3-7.7); Neutrophils % (A) 68 %; Platelet Count 200 k/uL (150-450); RBC 4.96 m/uL (4.30-5.90); WBC 9.4 k/uL (3.8-10.6)
[2019-09-29 18:18] LABS: ALT 24 U/L (21-72); AST 26 U/L (17-59); African American GFR (CKD) >90 (>60 ml/min/1.73 sqM); Albumin 4.1 g/dL (3.5-5.0); Alkaline Phosphatase 59 U/L (38-126); Amylase 182 U/L (30-110); Anion Gap 7 mmol/L; Blood Urea Nitrogen 19 mg/dL (9-20); Calcium 9.4 mg/dL (8.4-10.2); Carbon Dioxide 27 mmol/L (22-30); Chloride 105 mmol/L (98-107); Glucose 91 mg/dL (74-99); Non-African American GFR(CKD) 89 (>60 ml/min/1.73 sqM); Potassium 4.3 mmol/L (3.5-5.1); Sodium 139 mmol/L (137-145); Total Bilirubin 0.2 mg/dL (0.2-1.3)
[2019-09-29] MEDS ORDERED: MORPHINE SULFATE 4 MG/ML SYRINGE IVP PRN (19:00)
[2019-09-29] MEDS ORDERED: SODIUM CHLORIDE 0.9% 1,000 ML IV ONE (19:00)
[2019-09-29] MEDS ORDERED: ONDANSETRON 4 MG/2 ML VIAL IVP PRN (19:00)
[2019-09-30] MEDS: PANTOPRAZOLE 40 MG/10 ML VIAL IVP SCH (08:08)
[2019-09-30] MEDS: NICOTINE 21MG/24HR PATCH TRANSDERM SCH (09:50)
[2019-09-30] MEDS: SODIUM CHLORIDE 0.9% 1,000 ML IV SCH ×2 (09:50→17:27)
[2019-09-30 11:07] VITALS: BMI 18.9
--- NOTE | 2019-09-30 14:29 | HP ---
HISTORY AND PHYSICAL CHIEF COMPLAINT: Nausea, vomiting, diarrhea with epigastric pain. HISTORY OF PRESENT ILLNESS: This is another admission for this 64-year-old white male who has had a history of pancreatitis. He does not drink any longer. He developed these symptoms and came to emergency room where his lipase was found to be elevated. Otherwise, I believe he is in fairly good health. REVIEW OF SYSTEMS: He has had no headaches, neurologic problems, change in vision hearing, cough, hemoptysis, sputum production, murmurs, rheumatic fever, hypertension, orthopnea, PND, hematemesis, melena, hematochezia, jaundice, hepatitis, cirrhosis, hematuria, frequency, urgency, known dysuria, arthralgias, and he had no diabetes, etc. His past medical history, family history, personal and social histories reveal he is not taking any medication. He is ALLERGIC to PENICILLIN. Surgically he has had a procedure on the left wrist. He smokes at least a pack of cigarettes a day, but denies drinking any alcohol. States he has been having trouble with recurrent bouts of pancreatitis on and off for 10-15 years. He apparently does not have a regular doctor. Laboratory studies revealed a normal CBC and Chem profile with an amylase of 182 and lipase is 1218. PHYSICAL EXAM: Temp is 98.4, blood pressure 117/83 with pulse 77, respirations of 18. In general, he appeared to be slender, highly tattooed and in no acute distress. Head, ears, eyes, nose, mouth, and throat were normal. Neck veins not distended. Chest is clear. The cardiac exam demonstrates sinus rhythm. The abdomen is flat, soft and slightly tender over the epigastrium. There are no masses. Bowel sounds present. Extremities normal. Neurological he is intact. IMPRESSION: He is admitted to the hospital diagnoses: 1. Chronic recurring pancreatitis. 2. Nicotine abuse. PLAN: 1. Bed rest. 2. IV fluids. 3. Analgesics. 4. Follow enzymes. MMODL / IJN: [id number] /
--- NOTE | 2019-09-30 14:50 | PN ---
PROGRESS NOTE DATE OF SERVICE: 09/30/2019 CHIEF COMPLAINT: Pancreatitis. HISTORY OF PRESENT ILLNESS: This gentleman is doing a bit better. Pain is receding somewhat. He has had no further nausea, vomiting, or diarrhea. PHYSICAL EXAM: Abdomen is flat and soft. His bowel sounds are present. Chest is clear. Cardiac exam is normal. IMPRESSION: Chronic relapsing pancreatitis. PLAN: Advance diet. MMODL / IJN: [id number] /
[2019-10-01] MEDS: PANTOPRAZOLE 40 MG/10 ML VIAL IVP SCH (08:09)
[2019-10-01] MEDS: NICOTINE 21MG/24HR PATCH TRANSDERM SCH (08:09)
[2019-10-01] MEDS: SODIUM CHLORIDE 0.9% 1,000 ML IV SCH (08:09)
[2019-10-01 09:08] LABS: Amylase 54 U/L (30-110)
[2019-10-01 13:06] VITALS: BP 127/82; PULSE 60; RESP 17; TEMP 97.5
--- NOTE | 2019-10-01 15:31 | DS ---
DISCHARGE SUMMARY CHIEF COMPLAINT: Abdominal pain. HISTORY OF PRESENT ILLNESS AND PHYSICAL EXAM: Details of this man's history and physical can be found in the initial workup. LABORATORY STUDIES: While he was in the hospital, he had laboratory studies, details of which can be found in the laboratory section of his chart. COURSE IN HOSPITAL: After admission, he was placed on bedrest, started on intravenous fluids and analgesics. His pain subsided very quickly. His enzymes came to normal and it was felt that he could go home on a regular diet and activity and he will be on no medication. He will follow up in the office in several days. FINAL DIAGNOSES: Acute pancreatitis. OPERATIONS: None. CONSULTATION: None. He is improved. MMODL / IJN: [id number] /
== END 2019-10-01 14:26 | disposition home or self-care (01) ==
LOC: EC 16:38 → 3NMEDONC 19:00
PROVIDERS: ADMIT Family Medicine; ATTEND Family Medicine
DX: K85.90 Acute pancreatitis without necrosis or infection, unspecified (principal); K86.1 Other chronic pancreatitis; J44.9 Chronic obstructive pulmonary disease, unspecified; F17.210 Nicotine dependence, cigarettes, uncomplicated; Z79.899 Other long term (current) drug therapy; Z88.0 Allergy status to penicillin; Z91.030 Bee allergy status; Z83.3 Family history of diabetes mellitus; Z82.49 Family history of ischemic heart disease and other diseases of the circulatory system; Z81.1 Family history of alcohol abuse and dependence; Z83.79 Family history of other diseases of the digestive system
CPT/HCPCS: 96376 ×2; 96361 ×3; 96375 ×2; 96374; 99285; 36415; 80053; 82150 ×2; 83690 ×2; 85025; 87502; G0378 ×3; S4990 ×2; J2270; J2405; J1885; C9113 ×3

== ENCOUNTER 2019-11-07 12:43 | Emergency (ER) | payer OTHER ==
[2019-11-07] MEDS ORDERED: IPRATROPIUM-ALBUTEROL 3 ML NEB INHALATION STA (14:33)
[2019-11-07 15:04] LABS: Basophils # (A) 0.1 k/uL (0-0.2); Basophils % (A) 1 %; Eosinophils # (A) 0.2 k/uL (0-0.7); Eosinophils % (A) 1 %; HCT 44.8 % (39.0-53.0); HGB 15.4 gm/dL (13.0-17.5); Lymphocytes # (A) 1.9 k/uL (1.0-4.8); Lymphocytes % (A) 15 %; MCH 33.1 pg (25.0-35.0); MCHC 34.3 g/dL (31.0-37.0); MCV 96.5 fL (80.0-100.0); Mean Platelet Volume 7.9; Monocytes # (A) 0.7 k/uL (0-1.0); Monocytes % (A) 6 %; Neutrophils # (A) 9.8 k/uL (1.3-7.7); Neutrophils % (A) 77 %; Platelet Count 227 k/uL (150-450); RBC 4.64 m/uL (4.30-5.90); RDW 11.7 % (11.5-15.5); WBC 12.9 k/uL (3.8-10.6)
[2019-11-07 15:05] VITALS: BP 108/79
[2019-11-07 15:13] LABS: ALT 22 U/L (21-72); AST 19 U/L (17-59); African American GFR (CKD) >90 (>60 ml/min/1.73 sqM); Albumin 4.1 g/dL (3.5-5.0); Alkaline Phosphatase 63 U/L (38-126); Anion Gap 5 mmol/L; Blood Urea Nitrogen 16 mg/dL (9-20); Calcium 9.3 mg/dL (8.4-10.2); Carbon Dioxide 31 mmol/L (22-30); Chloride 104 mmol/L (98-107); Glucose 86 mg/dL (74-99); Non-African American GFR(CKD) >90 (>60 ml/min/1.73 sqM); Potassium 4.1 mmol/L (3.5-5.1); Sodium 140 mmol/L (137-145); Total Bilirubin 0.5 mg/dL (0.2-1.3); Total Protein 6.9 g/dL (6.3-8.2)
--- NOTE | 2019-11-07 15:30 | XR ---
EXAMINATION TYPE: XR chest 2V DATE OF EXAM: 11/07/2019 COMPARISON: 09/08/2019 TECHNIQUE: PA and lateral views submitted. HISTORY: Cough and congestion FINDINGS: The lungs are clear and there is no pneumothorax, pleural effusion, or focal pneumonia. Emphysemato us changes involving the lung apices seen. Correlate for COPD. No overt failure. Hypertrophic and deg enerative change of the spine. IMPRESSION: 1. No acute process. Correlate for COPD.
[2019-11-07] MEDS ORDERED: predniSONE 20 MG TAB PO STA (16:10)
--- NOTE | 2019-11-07 16:16 | ED ---
URI HPI - General Chief Complaint: Upper Respiratory Infection Stated Complaint: pnemonia Source: patient Mode of arrival: ambulatory Limitations: no limitations - History of Present Illness Initial Comments: The patient is a 54-year-old male past medical history of COPD and coronary artery disease who presents emergency room with reported cough. States has been present for the past 4 days. He is producing thick yellow sputum. He does have sick contacts with similar symptoms. Admits to chills without recorded fevers. He has been taking NyQuil and his inhaler at home without improvement in his breathing. States that his sick counterparts have improved however he has not. Continues to smoke. Does not use any home oxygen. Does not see a cable tender. Denies ripping or tearing patient was back. Denies any anterior chest pain. Admits to right sided chest pain with cough. No pleuritic chest pain. No history of DVT or PE. No lower extremity edema. No calf pain or swelling. No nausea or vomiting. There are no other alleviating, precipitating or modifying factors - Related Data Previous Rx's Medication Instructions Recorded Albuterol Inhaler [Ventolin Hfa 1 - 2 puff INHALATION RT-Q6H PRN 09/10/19 Inhaler] #1 inhaler Pantoprazole [Protonix] 40 mg PO AC-BRKFST #30 tablet. 09/10/19 Albuterol Sulfate [Proair Hfa] 1 - 2 puff INHALATION Q4HR PRN #1 11/07/19 inhaler Azithromycin [Zithromax Z-pack] 250 mg PO DIRECTED #1 pack 11/07/19 predniSONE 20 mg PO BID #10 tab 11/07/19 Allergies Allergy/AdvReac Type Severity Reaction Status Date / Time bee venom protein (honey bee) Allergy Anaphylaxis Verified 11/07/19 13:12 Penicillins Allergy Rash/Hives Verified 11/07/19 13:12 Review of Systems ROS Statement: Those systems with pertinent positive or pertinent negative responses have been documented in the HPI. ROS Other: All systems not noted in ROS Statement are negative. Past Medical History Past Medical History: COPD, CVA/TIA, Myocardial Infarction ([place]) Additional Past Medical History / Comment(s): pancreatitis, [place] (2004) Stroke (2004). Last Myocardial Infarction Date:: 2004 History of Any Multi-Drug Resistant Organisms: None Reported Past Surgical History: No Surgical Hx Reported Past Psychological History: No Psychological Hx Reported Smoking Status: Former smoker Past Alcohol Use History: None Reported, Daily Past Drug Use History: Marijuana - Past Family History Father Family Medical History: Diabetes Mellitus, Hypertension, Myocardial Infarction ([place]) Additional Family Medical History / Comment(s): in 1979 during operation to amputate leg because of gangrene. Mother Family Medical History: Liver Disease Additional Family Medical History / Comment(s): Alcoholism. in 1979 from cirrhosis of the liver. General Exam Limitations: no limitations Course Vital Signs 11/07/19 11/07/19 11/07/19 13:10 14:53 14:59 Temperature 98.0 F Pulse Rate 82 63 67 Respiratory 18 Rate Blood Pressure 129/74 O2 Sat by Pulse 94 L Oximetry 11/07/19 11/07/19 15:00 16:25 Temperature 98.3 F Pulse Rate 71 72 Respiratory 20 18 Rate Blood Pressure 108/79 108/79 O2 Sat by Pulse 96 98 Oximetry Medical Decision Making - Medical Decision Making Upon arrival the patient was placed into room 18. A thorough history and physical exam was performed. Laboratory studies were conducted which demonstrated a white blood cell count of 12.9. CMP is unremarkable. Influenza A and B are negative. Chest x-ray demonstrates no acute process. Correlate for COPD. 12-lead EKG is performed which demonstrates no acute findings. The patient did have a peripheral IV established. He was given a DuoNeb breathing t reatment. We did provide him with 60 of prednisone. The patient will be discharged home with a prescription for albuterol inhaler, prednisone and azithromycin. He needs help with his primary care doctor in 2-4 days. I did refer him to primary care physician. If the patient has any new or worsening symptoms he should return to the emergency room. Patient was then discharged home in stable condition - Lab Data Result diagrams: 11/07/19 14:30 11/07/19 14:30 Lab Results 11/07/19 11/07/19 11/07/19 Range/Units 14:30 14:30 14:30 WBC 12.9 H (3.8-10.6) k/uL RBC 4.64 (4.30-5.90) m/uL Hgb 15.4 (13.0-17.5) gm/dL Hct 44.8 (39.0-53.0) % MCV 96.5 (80.0-100.0) fL MCH 33.1 (25.0-35.0) pg MCHC 34.3 (31.0-37.0) g/dL RDW 11.7 (11.5-15.5) % Plt Count 227 (150-450) k/uL Neutrophils % 77 % Lymphocytes % 15 % Monocytes % 6 % Eosinophils % 1 % Basophils % 1 % Neutrophils # 9.8 H (1.3-7.7) k/uL Lymphocytes # 1.9 (1.0-4.8) k/uL Monocytes # 0.7 (0-1.0) k/uL Eosinophils # 0.2 (0-0.7) k/uL Basophils # 0.1 (0-0.2) k/uL Sodium 140 (137-145) mmol/L Potassium 4.1 (3.5-5.1) mmol/L Chloride 104 (98-107) mmol/L Carbon Dioxide 31 H (22-30) mmol/L Anion Gap 5 mmol/L BUN 16 (9-20) mg/dL Creatinine 0.89 (0.66-1.25) mg/dL Est GFR (CKD-EPI)AfAm >90 (>60 ml/min/1.73 sqM) Est GFR (CKD-EPI)NonAf >90 (>60 ml/min/1.73 sqM) Glucose 86 (74-99) mg/dL Plasma Lactic Acid Rocky (0.7-2.0) mmol/L Calcium 9.3 (8.4-10.2) mg/dL Total Bilirubin 0.5 (0.2-1.3) mg/dL AST 19 (17-59) U/L ALT 22 (21-72) U/L Alkaline Phosphatase 63 (38-126) U/L Total Protein 6.9 (6.3-8.2) g/dL Albumin 4.1 (3.5-5.0) g/dL Influenza Type A RNA Not Detected (Not Detectd) Influenza Type B (PCR) Not Detected (Not Detectd) 11/07/19 Range/Units 14:30 WBC (3.8-10.6) k/uL RBC (4.30-5.90) m/uL Hgb (13.0-17.5) gm/dL Hct (39.0-53.0) % MCV (80.0-100.0) fL MCH (25.0-35.0) pg MCHC (31.0-37.0) g/dL RDW (11.5-15.5) % Plt Count (150-450) k/uL Neutrophils % % Lymphocytes % % Monocytes % % Eosinophils % % Basophils % % Neutrophils # (1.3-7.7) k/uL Lymphocytes # (1.0-4.8) k/uL Monocytes # (0-1.0) k/uL Eosinophils # (0-0.7) k/uL Basophils # (0-0.2) k/uL Sodium (137-145) mmol/L Potassium (3.5-5.1) mmol/L Chloride (98-107) mmol/L Carbon Dioxide (22-30) mmol/L Anion Gap mmol/L BUN (9-20) mg/dL Creatinine (0.66-1.25) mg/dL Est GFR (CKD-EPI)AfAm (>60 ml/min/1.73 sqM) Est GFR (CKD-EPI)NonAf (>60 ml/min/1.73 sqM) Glucose (74-99) mg/dL Plasma Lactic Acid Rocky 0.8 (0.7-2.0) mmol/L Calcium (8.4-10.2) mg/dL Total Bilirubin (0.2-1.3) mg/dL AST (17-59) U/L ALT (21-72) U/L Alkaline Phosphatase (38-126) U/L Total Protein (6.3-8.2) g/dL Albumin (3.5-5.0) g/dL Influenza Type A RNA (Not Detectd) Influenza Type B (PCR) (Not Detectd) - EKG Data EKG Comments: EKG demonstrates normal sinus rhythm with ventricular rate of 71. DC interval 1:30. QRS 80. QTC 44. No acute ST segment elevations. There is inverted T- wave in aVL Disposition Clinical Impression: Cough Disposition: HOME SELF-CARE Condition: Stable Instructions (If sedation given, give patient instructions): Upper Respiratory Infection (ED) Additional Instructions: Please follow-up with your primary care doctor in 2-4 days. Return to the emergency room for any new or worsening symptoms Prescriptions: predniSONE 20 mg PO BID #10 tab Albuterol Sulfate [Proair Hfa] 1 - 2 puff INHALATION Q4HR PRN #1 inhaler PRN Reason: difficulty in breathing Azithromycin [Zithromax Z-pack] 250 mg PO DIRECTED #1 pack Is patient prescribed a controlled substance at d/c from ED?: No Referrals: None,Stated [Primary Care Provider] - 1-2 days Serafin Ivan MD [REFERRING] - 1-2 days Time of Disposition: 16:15
[2019-11-07 16:27] VITALS: PULSE 72; RESP 18; TEMP 98.3
== END 2019-11-07 16:27 | disposition home or self-care (01) ==
LOC: EC 12:43
DX: R05 Cough (principal); R68.83 Chills (without fever); R07.9 Chest pain, unspecified; I25.2 Old myocardial infarction; Z88.0 Allergy status to penicillin; Z91.030 Bee allergy status; Z86.73 Personal history of transient ischemic attack (TIA), and cerebral infarction without residual deficits; Z87.891 Personal history of nicotine dependence
CPT/HCPCS: 36415; 94640; 93005; 80053; 83605; 85025; 87502; 71046; 99284; J7512

== ENCOUNTER 2020-06-12 15:39 | Observation (INO) | payer OTHER ==
[2020-06-12] MEDS ORDERED: SODIUM CHLORIDE 0.9% 1,000 ML IV STA (16:00)
[2020-06-12 16:01] VITALS: RESP 16
[2020-06-12] MEDS ORDERED: MORPHINE SULFATE 4 MG/ML SYRINGE IVP STA (16:02)
--- NOTE | 2020-06-12 16:04 | ED ---
Chest Pain HPI - General Source: patient, EMS, RN notes reviewed, old records reviewed Mode of arrival: EMS Limitations: no limitations <Brenna Shah - Last Filed: 06/12/20 18:51> <Madai Junior - Last Filed: 06/14/20 00:06> - General Chief Complaint: Chest Pain Stated Complaint: Chest pain Time Seen by Provider: 06/12/20 15:48 - History of Present Illness Initial Comments: Patient is a 55-year-old male presents emergency department today for evaluation with complaints of chest pain and syncopal episode while walking today. He reports he's had a heart attack in the past and this is similar to previous heart attacks. Patient is a smoker. He states that he passed out today while walking And Woke up to 70 Standing over Him. They Drove Him to a Convenient Store in Which at That Time Patient Reports He Collapsed Because of Severe Chest Pain. Patient States That He Was Given Aspirin by EMS and Nitro. He States the Nitro Did Not Significantly Help with This Chest Pain. Denies Any Recent Cough. (Brenna Shah) - Related Data Home Medications Medication Instructions Recorded Confirmed Aspirin EC [Ecotrin Low Dose] 243 mg PO ONCE PRN 06/12/20 06/12/20 Allergies Allergy/AdvReac Type Severity Reaction Status Date / Time bee venom protein (honey bee) Allergy Anaphylaxis Verified 06/12/20 16:16 Penicillins Allergy Rash/Hives Verified 06/12/20 16:16 Review of Systems ROS Other: All systems not noted in ROS Statement are negative. <Brenna Shah - Last Filed: 06/12/20 18:51> ROS Other: All systems not noted in ROS Statement are negative. <Madai Junior - Last Filed: 06/14/20 00:06> ROS Statement: Those systems with pertinent positive or pertinent negative responses have been documented in the HPI. EKG Findings - EKG Comments: EKG Findings:: EKG performed at 1552 shows left axis deviation. Abnormal EKG. Ventricular rate of 77 bpm. Was 124 ms. QS duration 74 ms. QT QTc is 364/411 ms. <Brenna Shah - Last Filed: 06/12/20 18:51> Past Medical History Past Medical History: COPD, CVA/TIA, Myocardial Infarction ([place]) Additional Past Medical History / Comment(s): pancreatitis, [place] (2004) Stroke (2004). hx of daily drinker, stopped in 2009 Last Myocardial Infarction Date:: 2004 History of Any Multi-Drug Resistant Organisms: None Reported Past Surgical History: No Surgical Hx Reported Past Psychological History: No Psychological Hx Reported Smoking Status: Current every day smoker Past Alcohol Use History: None Reported Past Drug Use History: Marijuana - Past Family History Father Family Medical History: Diabetes Mellitus, Hypertension, Myocardial Infarction ([place]) Additional Family Medical History / Comment(s): in 1979 during operation to amputate leg because of gangrene. Mother Family Medical History: Liver Disease Additional Family Medical History / Comment(s): Alcoholism. in 1979 from cirrhosis of the liver. <Brenna Shah - Last Filed: 06/12/20 18:51> General Exam Limitations: no limitations General appearance: alert, in no apparent distress Head exam: Present: atraumatic, normocephalic, normal inspection Eye exam: Present: normal appearance, PERRL, EOMI. Absent: scleral icterus, conjunctival injection, periorbital swelling ENT exam: Present: normal exam, mucous membranes moist Neck exam: Present: normal inspection. Absent: tenderness, meningismus, lymphadenopathy Respiratory exam: Present: normal lung sounds bilaterally. Absent: respiratory distress, wheezes, rales, rhonchi, stridor Cardiovascular Exam: Present: regular rate GI/Abdominal exam: Present: soft, normal bowel sounds. Absent: distended, tenderness, guarding, rebound, rigid Back exam: Present: normal inspection Neurological exam: Present: alert, oriented X3, CN II-XII intact Psychiatric exam: Present: normal affect, normal mood Skin exam: Present: warm, dry, intact, normal color. Absent: rash <Brenna Shah - Last Filed: 06/12/20 18:51> - General Exam Comments Initial Comments: 55-year-old male. Alert and oriented 3. (Brenna Shah) Course Vital Signs 06/12/20 06/12/20 06/12/20 15:48 18:39 19:49 Temperature 98.0 F Pulse Rate 87 69 65 Respiratory 16 16 16 Rate Blood Pressure 109/74 106/58 99/57 O2 Sat by Pulse 97 97 95 Oximetry Chest Pain MDM <Brenna Shah - Last Filed: 06/12/20 18:51> <Madai Junior - Last Filed: 06/14/20 00:06> - [facility] This is a 55-year-old male with a history of smoking and previous UT presents emergency department today with a single episode onset of chest pain one hour prior to arrival. He was walking outside and reportedly passed out. He was then found by tamir Sandhu who took him to a local gas station. Patient reports that at that time indicated fill weak and complaining of onset of chest discomfort. EMS was contacted and Patient was given aspirin and nitro by EMS. He arrives here complaining of a 6 out of 10 chest pain. He reports it feels like previous UT in 2004. EKG was reviewed and showed no significant acute changes. Initial troponin is negative. With onset of symptoms being hour prior to arrival discussed admission and Patient is agreeable with this plan. We'll consult cardiology. (Brenna Shah) I was available for consultation in the emergency department. The history and physical exam were done by the midlevel provider. I was consulted for this patients care. I reviewed the case with the midlevel provider and based on their presentation of the patient, I agree with the assessment, medical decision making and plan of care as documented. Chart was dictated using [employer] dictation software. Attempts were made to correct any dictation errors however some typographical errors may persist. Patient was seen during a national state of emergency due to the Covid-19 pandemic. (Madai Junior) Disposition Is patient prescribed a controlled substance at d/c from ED?: No Time of Disposition: 18:57 <Brenna Shah - Last Filed: 06/12/20 18:51> <Madai Junior - Last Filed: 06/14/20 00:06> Clinical Impression: Unstable angina, Syncope Disposition: ADMITTED IP TO THIS HOSP Condition: Stable
[2020-06-12 16:14] LABS: Basophils # (A) 0.1 k/uL (0-0.2); Basophils % (A) 1 %; Eosinophils # (A) 0.1 k/uL (0-0.7); Eosinophils % (A) 1 %; HCT 48.3 % (39.0-53.0); HGB 15.9 gm/dL (13.0-17.5); Lymphocytes # (A) 1.7 k/uL (1.0-4.8); Lymphocytes % (A) 14 %; MCH 31.7 pg (25.0-35.0); MCHC 32.9 g/dL (31.0-37.0); MCV 96.2 fL (80.0-100.0); Mean Platelet Volume 8.3; Monocytes # (A) 0.6 k/uL (0-1.0); Monocytes % (A) 5 %; Neutrophils # (A) 9.7 k/uL (1.3-7.7); Neutrophils % (A) 79 %; Platelet Count 166 k/uL (150-450); RBC 5.02 m/uL (4.30-5.90); RDW 12.6 % (11.5-15.5); WBC 12.2 k/uL (3.8-10.6)
[2020-06-12] MEDS: SODIUM CHLORIDE 0.9% 1,000 ML IV STA ×2 (16:15→21:37)
[2020-06-12 16:24] LABS: ALT 18 U/L (4-49); AST 28 U/L (17-59); African American GFR (CKD) >90 (>60 ml/min/1.73 sqM); Albumin 3.1 g/dL (3.5-5.0); Alkaline Phosphatase 48 U/L (38-126); Anion Gap 6 mmol/L; Blood Urea Nitrogen 14 mg/dL (9-20); Calcium 8.5 mg/dL (8.4-10.2); Carbon Dioxide 21 mmol/L (22-30); Chloride 108 mmol/L (98-107); Glucose 147 mg/dL (74-99); Magnesium 1.4 mg/dL (1.6-2.3); Non-African American GFR(CKD) >90 (>60 ml/min/1.73 sqM); Potassium 3.4 mmol/L (3.5-5.1); Sodium 135 mmol/L (137-145); Total Bilirubin 0.5 mg/dL (0.2-1.3); Total Protein 5.2 g/dL (6.3-8.2)
[2020-06-12 16:30] LABS: D-Dimer 0.23 mg/L FEU (<0.60); INR 1.1 (<1.2); Partial Thromboplastin Time 22.4 sec (22.0-30.0); Prothrombin Time 11.2 sec (9.0-12.0)
--- NOTE | 2020-06-12 16:44 | XR ---
EXAMINATION TYPE: XR chest 2V DATE OF EXAM: 06/12/2020 COMPARISON: Chest radiograph 11/07/2019 HISTORY: Syncope. Chest pain, weakness, shortness of breath. TECHNIQUE: Frontal and lateral views of the chest are obtained. FINDINGS: The lungs are hyperinflated with emphysematous changes at the bilateral lung apices. There is no focal air space opacity, pleural effusion, or pneumothorax seen. The cardiac silhouette size is within normal limits. The osseous structures are intact. IMPRESSION: No acute cardiopulmonary process.
[2020-06-12] MEDS ORDERED: ONDANSETRON 4 MG/2 ML VIAL IVP PRN (18:57)
[2020-06-12] MEDS ORDERED: ACETAMINOPHEN TAB 325 MG TAB PO PRN (18:57)
[2020-06-12] MEDS ORDERED: MORPHINE SULFATE 4 MG/ML SYRINGE IV PRN (18:57)
[2020-06-12] MEDS ORDERED: NALOXONE 0.4 MG/ML 1 ML VIAL IV PRN (18:57)
[2020-06-12] MEDS ORDERED: KETOROLAC 30 MG/ML 1 ML VIAL IVP PRN (18:57)
[2020-06-12] MEDS ORDERED: IBUPROFEN 400 MG TAB PO PRN (18:57)
[2020-06-12] MEDS ORDERED: NITROGLYCERIN SL TABS 0.4 MG TAB SUBLINGUAL PRN (19:00)
[2020-06-12 19:32] LABS: Appearance,Urine Clear (Clear); Bilirubin,Urine Negative (Negative); Blood,Urine Negative (Negative); Color,Urine Yellow; Glucose,Urine (UA) Trace (Negative); Ketones,Urine 1+ (Negative); Leukocyte Esterase,Urine Negative (Negative); Nitrite,Urine Negative (Negative); PH, Urine 6.5 (5.0-8.0); Protein,Urine Trace (Negative); Specific Gravity,Urine 1.012 (1.001-1.035); Urobilinogen,Urine <2.0 mg/dL (<2.0)
[2020-06-12] MEDS ORDERED: MAGNESIUM SULFATE-D5W PMX 1 GM in DEXTROSE/WATER 1 100ML.BAG IVPB ONE ×2 (19:59→23:30)
[2020-06-12] MEDS: SODIUM CHLORIDE 0.9% 1,000 ML IV SCH (21:37)
[2020-06-12] MEDS ORDERED: POTASSIUM CHLORIDE ER 20 MEQ TAB.ER PO STA (22:09)
[2020-06-13] MEDS: SODIUM CHLORIDE 0.9% 1,000 ML IV SCH (06:22)
[2020-06-13 06:39] LABS: ALT 14 U/L (4-49); AST 23 U/L (17-59); African American GFR (CKD) >90 (>60 ml/min/1.73 sqM); Albumin 2.3 g/dL (3.5-5.0); Alkaline Phosphatase 42 U/L (38-126); Anion Gap -2 mmol/L; Blood Urea Nitrogen 14 mg/dL (9-20); Calcium 7.1 mg/dL (8.4-10.2); Carbon Dioxide 26 mmol/L (22-30); Chloride 113 mmol/L (98-107); Cholesterol 106 mg/dL (<200); Glucose 87 mg/dL (74-99); HDL Cholesterol 31 mg/dL (40-60); LDL Cholesterol,Calculated 62 mg/dL (0-99); Magnesium 2.1 mg/dL (1.6-2.3); Non-African American GFR(CKD) >90 (>60 ml/min/1.73 sqM); Potassium 4.2 mmol/L (3.5-5.1); Sodium 137 mmol/L (137-145); Total Bilirubin 0.3 mg/dL (0.2-1.3); Total Protein 3.9 g/dL (6.3-8.2); Triglycerides 67 mg/dL (<150)
[2020-06-13] MEDS ORDERED: ASPIRIN 325 MG TAB PO SCH (09:00)
[2020-06-13] MEDS ORDERED: PANTOPRAZOLE 40 MG/10 ML VIAL IV SCH (09:00)
[2020-06-13 12:40] VITALS: PULSE 63; TEMP 97.9
[2020-06-13 12:41] VITALS: BP 129/70
--- NOTE | 2020-06-13 13:51 | P.HPIM ---
History of Present Illness 55-year-old male came in after the patient had a syncopal episode. Patient denied any seizure-like activity loss of bowel or bladder incontinence. Patient episode appears to have lasted for few agents. He was restored at the time and someone has to wake him up. Patient earlier that day that is yesterday had a possible donation and didn't eat or drink at the time. Patient was also having some chest pain which appears to be musculoskeletal reproducible atypical. Patient was a valid by cardiology. Patient had a nitro which did not help his chest pain presently completed resolved at this time. Patient was monitored overnight patient received IV fluids, patient had a positive orthostatic vitals with low blood pressure. Patient continues to smoke Review of Systems REVIEW OF SYSTEMS: CONSTITUTIONAL: No fever, no malaise, no fatigue. HEENT: No recent visual problems or hearing problems. Denied any sore throat. CARDIOVASCULAR: No chest pain, orthopnea, PND, no palpitationse. PULMONARY: No shortness of breath, no cough, no hemoptysis. GASTROINTESTINAL: No diarrhea, no nausea, no vomiting, no abdominal pain. NEUROLOGICAL: No headaches, no weakness, no numbness. HEMATOLOGICAL: Denies any bleeding or petechiae. GENITOURINARY: Denies any burning micturition, frequency, or urgency. MUSCULOSKELETAL/RHEUMATOLOGICAL: Denies any joint pain, swelling, or any muscle pain. ENDOCRINE: Denies any polyuria or polydipsia. The rest of the 14-point review of systems is negative. Past Medical History Past Medical History: COPD, CVA/TIA, Myocardial Infarction ([place]) Additional Past Medical History / Comment(s): pancreatitis, [place] (2004) Stroke (2004). hx of daily drinker, stopped in 2009 Last Myocardial Infarction Date:: 2004 History of Any Multi-Drug Resistant Organisms: None Reported Past Surgical History: No Surgical Hx Reported Past Psychological History: No Psychological Hx Reported Smoking Status: Current every day smoker Past Alcohol Use History: None Reported Additional Past Alcohol Use History / Comment(s): Pt states last drink was 15 years ago. Past Drug Use History: Marijuana Additional Drug Use History / Comment(s): marijuana daily. - Past Family History Father Family Medical History: Diabetes Mellitus, Hypertension, Myocardial Infarction ([place]) Additional Family Medical History / Comment(s): in 1979 during operation to amputate leg because of gangrene. Mother Family Medical History: Liver Disease Additional Family Medical History / Comment(s): Alcoholism. in 1979 from cirrhosis of the liver. Medications and Allergies Home Medications Medication Instructions Recorded Confirmed Type Aspirin EC [Ecotrin Low Dose] 243 mg PO ONCE PRN 06/12/20 06/12/20 History Allergies Allergy/AdvReac Type Severity Reaction Status Date / Time bee venom protein (honey bee) Allergy Anaphylaxis Verified 06/12/20 16:16 Penicillins Allergy Rash/Hives Verified 06/12/20 16:16 Physical Exam Vitals: Vital Signs Temp Pulse Pulse Resp BP BP Pulse Ox 06/13/20 12:00 63 16 129/70 96 06/13/20 08:00 97.9 F 63 16 118/74 96 06/13/20 04:00 97.8 F 68 16 130/74 97 06/13/20 01:30 98.0 F 71 16 129/73 97 06/12/20 19:49 65 16 99/57 95 06/12/20 18:39 69 16 106/58 97 06/12/20 15:48 98.0 F 87 16 109/74 97 Intake and Output 06/12/20 06/13/20 06/13/20 22:59 06:59 14:59 Intake Total 900 240 Balance 900 240 Intake: Intake, IV Titration 900 Amount Magnesium Sulfate-D5w Pmx 100 1 gm In Dextrose/Water 1 100ml.bag @ 100 mls/hr IVPB ONCE ONE Rx#: [id number] Magnesium Sulfate-D5w Pmx 100 1 gm In Dextrose/Water 1 100ml.bag @ 100 mls/hr IVPB ONCE ONE Rx#: [id number] Sodium Chloride 0.9% 1, 700 000 ml @ 100 mls/hr IV . Q10H [facility] Rx#:[id number] Oral 240 Other: # Voids 2 # Bowel Movements 0 Weight 53.977 kg 53.7 kg PHYSICAL EXAMINATION: GENERAL: The patient is alert and oriented x3, not in any acute distress. Well developed, well nourished. HEENT: Pupils are round and equally reacting to light. EOMI. No scleral icterus. No conjunctival pallor. Normocephalic, atraumatic. No pharyngeal erythema. No thyromegaly. CARDIOVASCULAR: S1 and S2 present. No murmurs, rubs, or gallops. PULMONARY: Chest is clear to auscultation, no wheezing or crackles. ABDOMEN: Soft, nontender, nondistended, normoactive bowel sounds. No palpable organomegaly. MUSCULOSKELETAL: No joint swelling or deformity. EXTREMITIES: No cyanosis, clubbing, or pedal edema. NEUROLOGICAL: Gross neurological examination did not reveal any focal deficits. SKIN: No rashes. Results CBC & Chem 7: 06/12/20 16:07 06/13/20 05:56 Labs: Abnormal Lab Results - Last 24 Hours (Table) 06/12/20 06/12/20 06/12/20 Range/Units 16:07 16:07 18:42 WBC 12.2 H (3.8-10.6) k/uL Neutrophils # 9.7 H (1.3-7.7) k/uL Sodium 135 L (137-145) mmol/L Potassium 3.4 L (3.5-5.1) mmol/L Chloride 108 H (98-107) mmol/L Carbon Dioxide 21 L (22-30) mmol/L Glucose 147 H (74-99) mg/dL Calcium (8.4-10.2) mg/dL Magnesium 1.4 L (1.6-2.3) mg/dL Total Protein 5.2 L (6.3-8.2) g/dL Albumin 3.1 L (3.5-5.0) g/dL HDL Cholesterol (40-60) mg/dL Urine Protein Trace H (Negative) Urine Glucose (UA) Trace H (Negative) Urine Ketones 1+ H (Negative) 06/12/20 06/13/20 Range/Units 19:08 05:56 WBC (3.8-10.6) k/uL Neutrophils # (1.3-7.7) k/uL Sodium (137-145) mmol/L Potassium (3.5-5.1) mmol/L Chloride 113 H (98-107) mmol/L Carbon Dioxide (22-30) mmol/L Glucose (74-99) mg/dL Calcium 7.1 L (8.4-10.2) mg/dL Magnesium 1.5 L (1.6-2.3) mg/dL Total Protein 3.9 L (6.3-8.2) g/dL Albumin 2.3 L (3.5-5.0) g/dL HDL Cholesterol 31 L (40-60) mg/dL Urine Protein (Negative) Urine Glucose (UA) (Negative) Urine Ketones (Negative) Thrombosis Risk Factor Assmnt - Choose All That Apply Any of the Below Risk Factors Present?: No Other Risk Factors: No Other congenital or acquired thrombophilia - If yes, enter type in comment: No Thrombosis Risk Factor Assessment Level: Very Low Risk Assessment and Plan Plan: -Syncope: Secondary to dehydration patient received IV fluids feeling better will be discharged today patient donated plasma earlier when he had a syncope. -Chest pain musculoskeletal ruled out acute coronary syndromes. -Nicotine abuse: Counseling was provided -COPD without any acute exacerbation
--- NOTE | 2020-06-13 13:52 | P.DS ---
Providers Date of admission: 06/12/20 19:32 Attending physician: Melony Zuniga Consults: 06/12/20 18:57 Consult Physician Stat Consulting Provider: Anuj Sanchez Consult Reason/Comments: Unstable angina, syncope Do you want consulting provider notified?: Yes, Notify in am Primary care physician: Stated None Hospital Course: As mentioned in HPI Patient Condition at Discharge: Stable Plan - Discharge Summary Discharge Rx Participant: No New Discharge Prescriptions: No Action Aspirin EC [Ecotrin Low Dose] 243 mg PO ONCE PRN PRN Reason: Chest Pain Discharge Medication List Aspirin EC [Ecotrin Low Dose] 243 mg PO ONCE PRN 06/12/20 [History] Follow up Appointment(s)/Referral(s): Serafin Ivan MD [REFERRING] - 1 Week Discharge Disposition: HOME SELF-CARE
--- NOTE | 2020-06-13 15:36 | CONS ---
CONSULTATION Cain Rodriguez is a 55-year-old gentleman who regularly gives his plasma donation. He came into the hospital complaining of chest pain after donating plasma yesterday. Pain is atypical, lasts about 5-10 seconds, comes in a random fashion. It starts from the right side of the chest and goes to the left. This gentleman has been in the hospital before. He does not follow up with physicians and is not compliant with advice. He was seen and evaluated by Dr. Arredondo, who performed a cardiac catheterization that did not reveal any obstructive CAD; this was in August 2019. The patient is here with the pain. His troponins are normal. He is resting comfortably. EKGs are unremarkable. PAST MEDICAL HISTORY: 1. Recent cardiac catheterization which did not reveal any significant obstructive CAD. 2. History of COPD, smoking. 3. History of pancreatitis. 4. Alcoholism. He has stopped drinking, he says, but this has not been verified. He does use marijuana; smokes every day. The last echocardiogram also revealed good systolic function. This was in August 2019. PHYSICAL EXAMINATION: On examination, blood pressure is 120/70, pulse rate 70 per minute, regular. HEENT unremarkable. Fundus was not examined by me. Neck is supple. No JVD. I do not hear a carotid bruit. There is no thyromegaly. Heart exam reveals S1, S2 heard normally. No rub, murmur or gallop. Lungs are clear. Abdomen is soft, nontender. Lower extremities reveal normal pulses. No edema. Central nervous system is normal. EKG revealed sinus mechanism, no acute changes. IMPRESSION: 1. Atypical chest pain in a patient with normal catheterization in August. 2. Hypoalbuminemia. Albumin level is 2.1. 3. Alcoholism. 4. History of smoking. RECOMMENDATIONS: I am recommending that no further workup is necessary. He can be discharged. I advised the patient that he should not donate plasma with an albumin level of 2.1. I discussed regarding malnourishment issue, alcoholism and smoking cessation. The patient will be discharged and follow up with his primary care physician. LIA / JOHN PAUL: [phone] /
== END 2020-06-13 15:06 | disposition home or self-care (01) ==
LOC: EC 15:39 → 3SCARD 19:32 → INTOOBSV 19:32 → UNDODISIN 06-13 15:06
PROVIDERS: ADMIT Hospitalist; ATTEND Hospitalist
DX: R07.89 Other chest pain (principal); E86.0 Dehydration; E88.09 Other disorders of plasma-protein metabolism, not elsewhere classified; J44.9 Chronic obstructive pulmonary disease, unspecified; F17.200 Nicotine dependence, unspecified, uncomplicated; F10.20 Alcohol dependence, uncomplicated; R94.31 Abnormal electrocardiogram [ECG] [EKG]; F12.90 Cannabis use, unspecified, uncomplicated; I95.1 Orthostatic hypotension; Z20.828 Contact with and (suspected) exposure to other viral communicable diseases; I25.2 Old myocardial infarction; Z79.82 Long term (current) use of aspirin; Z88.0 Allergy status to penicillin; Z91.030 Bee allergy status; Z86.73 Personal history of transient ischemic attack (TIA), and cerebral infarction without residual deficits; Z87.19 Personal history of other diseases of the digestive system; Z81.1 Family history of alcohol abuse and dependence; Z83.3 Family history of diabetes mellitus; Z82.49 Family history of ischemic heart disease and other diseases of the circulatory system; Z83.79 Family history of other diseases of the digestive system
CPT/HCPCS: 96361 ×2; 96365; 96366; 96375 ×3; 93005 ×2; 99285; 36415; 85379; 80061; 80053 ×2; 83735 ×2; 84484; 85025; 85610; 85730; 81003; 71046; G0378 ×2; U0003; J2270; J1885; J3475; C9113; 96374